=== PATIENT | male | born 1990 | race Caucasian/White ===

== ENCOUNTER 2016-10-28 15:43 | Emergency (ER) | payer MEDICAID ==
--- NOTE | 2016-10-30 09:12 | ER ---
ADMIT: 10/28/2016 RM/LOC: ER [facility] MR#: [id number] [address] [address] ZEFERINO REIS [address] [place] [address] Emergency Room Report SEX: M AGE: 26 : 1990 DATE: 10/28/2016 ADDENDUM: CHIEF COMPLAINT: Chest wall pain. HISTORY OF PRESENT ILLNESS: This is a 26-year-old who has had this left-sided chest pain for over a week now. He tried to call his primary care physician. They suggested that he come to the ER because of the chest pain. He said this pain is worse with deep breaths, worse with cough, worse with lying flat. When asking him risks for blood clotting disorders, he does not have any family history. No recent travels. No recent surgery. He is not short of breath. He is not tachypneic. He is not tachycardic. His only risk factor is that he does smoke. When I asked about family cardiac history, he does not have any family cardiac history. The pain is reproducible. COURSE IN THE EMERGENCY ROOM: I did a chest x-ray, which was negative for any acute disease, over-read by Dr. Romero. EKG showed sinus remedios at a rate of 58, no ST changes. He is a [id number]-[id number] father, has 3 boys under the age of 10, the youngest being 2. He said he does do a lot of holding, his youngest in his left arm. I told him that I feel like this is just more musculoskeletal. He has no signs of this being a cardiac event or pulmonary embolism. Told him take Motrin or Tylenol for pain. Follow up with his primary care physician if symptoms worsen. CLINICAL IMPRESSION: Chest wall pain. PAT Eddy / Ha Romero MD / gustabo JOB #: [id number] CC: Ha Romero MD, Attending Physician
== END 2016-10-28 17:15 | disposition home or self-care (01) ==
LOC: ER 15:43
DX: R07.89 Other chest pain (principal); F17.210 Nicotine dependence, cigarettes, uncomplicated

== ENCOUNTER 2017-01-03 06:44 | Emergency (ER) | payer MEDICAID ==
--- NOTE | 2017-01-04 08:23 | ER ---
ADMIT: 01/03/2017 RM/LOC: ER [facility] MR#: [id number] [address] [address] ZEFERINO REIS [address] [place] [address] Emergency Room Report SEX: M AGE: 26 : 1990 DATE: 01/03/2017 TIME: 0644. Please refer to my T-sheet for complete H and P. HISTORY OF PRESENT ILLNESS: Briefly, the patient is a 26-year-old who comes in with severe right flank pain came on an hour ago, radiates to his groin. He has never had pain like this before, very sharp, 10/10. PHYSICAL EXAMINATION: VITAL SIGNS: Stable. HEENT: Grossly normal. LUNGS: Clear. ABDOMEN: Soft, tender in the right CVA and right flank. EMERGENCY DEPARTMENT COURSE: He received a liter normal saline bolus, 8 mg of Zofran, 30 of IV Toradol, Dilaudid 1 mg IV. His pain was improved. CBC was normal except white count 12.4, BMP was normal. CRP normal. Lactate 2.1. Chemistries normal except potassium 3.2 and glucose 136. UA showed 171 red cells, 2+ blood. CT scan revealed a 3-4 mm distal right ureter stone. His pain was controlled and he was ready for discharge. ASSESSMENT: Ureterolithiasis. PLAN: Fluids, return if worse. Continue meds he has at home and added Percocet 7.5. Followup with Urology as needed. Chun Yao MD/ gustabo JOB #: [id number] CC: Fredo Barrett MD, Attending Physician Kirill Soliman MD, Family Physician R Mustapha Torrez MD
== END 2017-01-03 08:25 | disposition home or self-care (01) ==
LOC: ER 06:44
DX: N20.1 Calculus of ureter (principal); I10 Essential (primary) hypertension; F17.210 Nicotine dependence, cigarettes, uncomplicated; Z79.899 Other long term (current) drug therapy

== ENCOUNTER 2017-01-03 09:57 | Day surgery (SDC) | payer MEDICAID ==
--- NOTE | ~2017-01-03 | OR ---
ADMIT: 01/03/2017 RM/LOC: [facility] MR#: [id number] [address] [address] ZEFERINO REIS [address] [place] [address] Operative/Delivery Room Report SEX: M AGE: 26 : 1990 SURGERY DATE: 01/03/2017 SURGEON: Jeffy Torrez MD PREOPERATIVE DIAGNOSIS: Distal right ureteral calculus. POSTOPERATIVE DIAGNOSIS: Distal right ureteral calculus. OPERATION: Cystourethroscopy with right ureteroscopy, laser lithotripsy, and stone extraction. ANESTHETIC: General. INDICATION FOR PROCEDURE: This 26-year-old gentleman, who developed sudden onset of right flank pain radiating into the right lower quadrant. A renal colic CT demonstrating a distal right ureteral calculus and is admitted now for treatment. DESCRIPTION OF OPERATION: After a suitable general endotracheal anesthetic was obtained, the patient was placed in the dorsal lithotomy position with his genitalia and surrounding skin prepped and draped usual sterile fashion. The 23-[place] Olympus cystoscope was inserted under direct visualization with the anterior urethra preemie normal. There was minimal prostatic enlargement. Upon entering the bladder, the trigone was well developed with both ureteral orifices in a normal position with clear efflux of urine from both. The bladder mucosa was nontrabeculated and without evidence of infection or tumor. A 0.03 Glidewire was inserted into right ureteral orifice and advanced until the tip of the Glidewire was in the renal pelvis. The cystoscope was then removed leaving the Glidewire indwelling. Over the Glidewire, a semi-rigid ureteroscope was inserted and advanced into the bladder under direct vision. The scope was then advanced into the right ureteral orifice and slowly advanced up the ureter. Just beyond the intramural tunnel, the ureteral calculus was encountered. The Glidewire was then removed and the 400 micron ADMIT: 01/03/2017 RM/LOC: [facility] MR#: [id number] [address] [address] ZEFERINO REIS [address] [place] [address] Operative/Delivery Room Report SEX: M AGE: 26 : 1990 laser fiber obtained. With the use of the holmium laser, the stone was fragmented in its entirety with all stone fragments and then removed with the Zero Tip stone basket. Final inspection of the ureter revealed no evidence of retained stone fragments and no evidence of ureteral injury or perforation. The ureteroscope was then removed without incident. The bladder was then drained. The patient having tolerated the procedure was taken to the recovery room in satisfactory condition. DISCHARGE INSTRUCTIONS: He will return to the office in approximately 2 weeks for followup. Medications did include Cipro 500 mg twice a day for 10 days. He does have pain medication at home. He was instructed on increased fluid intake with no special diet given. Jeffy Torrez MD/ gustabo JOB #: [id number] CC: Jeffy Torrez MD, Attending Physician Avis Johansen, Family Physician
--- NOTE | 2017-01-04 08:23 | ER ---
ADMIT: 01/03/2017 RM/LOC: [facility] MR#: [id number] [address] [facility] [address] [place], [place] [address] ZEFERINO REIS [address] [place] [address] Emergency Room Report SEX: M AGE: 26 : 1990 DATE: 01/03/2017 TIME: 0957 hours. PRIMARY CARE: [facility] Avis Johansen. Please refer to my T-sheet for complete H and P. HISTORY OF PRESENT ILLNESS: Briefly, the patient is 26-year-old, who had right flank pain that started at 4:00 this morning, severe towards his groin. He was seen in the Emergency Department, had a large workup with lab including a CAT scan that revealed a distal 3 to 4 mm ureter stone. His pain was controlled and he let go home. He is back saying the pain is unbearable. He does have a history of chronic pain and chronic narc use in the past for back pain where he is on MS Contin and hydrocodone at home along with gabapentin. PHYSICAL EXAMINATION: VITAL SIGNS: His blood pressure is elevated at 172/109, pulse 62, respirations 16, temp 97.4, and satting 100%. GENERAL: Anxious. HEENT: Grossly normal. ABDOMEN: Soft, tender in the right quadrant and right CVA. EMERGENCY DEPARTMENT COURSE: I reviewed his CT that revealed a right 3 to 4 mm distal ureter stone. His urine had mostly blood. Creatinine was okay and CBC was normal. I gave him 15 morphine and a milligram of Dilaudid, Toradol, IV fluids here and could not get his pain controlled and I talked to Dr. Torrez, who will come and evaluate. ASSESSMENT: 1. Ureterolithiasis. 2. Uncontrollable pain. PLAN: Consult Dr. Torrez in the Emergency Department for admission. Chun Yao MD/ gustabo JOB #: [id number] CC: Jeffy Torrez MD, Attending Physician Avis Johansen, Family Physician Jeffy Torrez MD
--- NOTE | 2017-01-25 16:39 | HP ---
ADMIT: 01/03/2017 RM/LOC: [facility] MR#: [id number] [address] [place] [id number] RUSS REISBRENDEN Maldonado [address] [place] [address] History and Physical SEX: M AGE: 26 : 1990 CORRECTION: 01/05/2017 1606 vdg DATE OF SERVICE: 01/03/2017 HISTORY OF PRESENT ILLNESS: This is a 26-year-old gentleman, who developed sudden onset of right flank pain radiating into the right lower quadrant earlier this morning. He was seen in the emergency room at [facility] at which time, a CT scan demonstrated a 3 mm calculus at the right ureterovesical junction. He was sent home with pain medication, but returned to the emergency room because of increasing pain. He has no prior history of nephrolithiasis and denies any gross hematuria or dysuria. He has not passed the stone to his knowledge. Past medical history, medications, pain medicine as prescribed by Dr. Aguilar Kimbrough for chronic back pain. ALLERGIES: NONE. OPERATIONS: Back surgery for tumor. REVIEW OF SYSTEMS: He denies any cardiac or pulmonary disease. No diabetes mellitus or essential hypertension. FAMILY HISTORY: Negative for urologic problems. SOCIAL HISTORY: He works as a cooking instructor. PHYSICAL EXAMINATION: GENERAL: This is a healthy appearing 26-year-old, in moderate distress. He is oriented x3. HEENT: Unremarkable. NECK: Supple. No adenopathy. CHEST: Clear to auscultation and percussion. ADMIT: 01/03/2017 RM/LOC: [facility] MR#: [id number] [address] [address] CHATO ZEFERINO Maldonado [address] [facility] [place] [address] History and Physical SEX: M AGE: 26 : 1990 HEART: Regular rate and rhythm. ABDOMEN: Soft, with tenderness in the right lower quadrant, however no guarding or rigidity was noted. No masses palpable. EXTREMITIES: Full range of motion without deformity. NEUROLOGIC: He is grossly intact. ASSESSMENT: Distal right ureteral calculus. PLAN: Cystoscopy with right ureteroscopy, laser lithotripsy, and stone extraction. Jeffy Torrez MD/ gustabo JOB #: [id number] CC: Jeffy Torrez MD, Attending Physician Avis Johansen, Family Physician CORRECTION: 01/05/2017 1606 vdg
== END 2017-01-03 14:50 | disposition home or self-care (01) ==
LOC: ER 09:57 → SSS 11:27
PROC: 0TC68ZZ Extirpation of Matter from Right Ureter, Via Natural or Artificial Opening Endoscopic (ICD-10-PCS; principal; 2017-01-03)
DX: N20.1 Calculus of ureter (principal); F17.210 Nicotine dependence, cigarettes, uncomplicated; Z98.890 Other specified postprocedural states